=== PATIENT | male | born 1980 | race Caucasian/White ===

== ENCOUNTER 2021-05-26 13:06 | Emergency (ER) | payer BC, SELFPAY ==
[2021-05-26 13:11] VITALS: BP 114/78; PULSE 93; RESP 16; TEMP 37; O2SAT 100
[2021-05-26 15:27] VITALS: BP 119/76; PULSE 86; RESP 16; TEMP 36.6; O2SAT 100
--- NOTE | 2021-05-26 15:27 | PC.NURSE ---
BP 119/76 HR 86 SpO2 100% RR 16 Temp 98 temporal
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
== END 2021-05-26 17:01 | disposition home or self-care (01) ==
PROVIDERS: Emergency Provider Nurse Practitioner
DX: H16.133 Photokeratitis, bilateral (principal); F17.200 Nicotine dependence, unspecified, uncomplicated; X08.8XXA Exposure to other specified smoke, fire and flames, initial encounter
CPT/HCPCS: 99283; A9270